=== PATIENT | male | born 1985 | race Caucasian/White ===

== ENCOUNTER → 2023-12-22 | Outpatient (CLI) | payer OTHER ==
[2023-12-22 10:19] VITALS: BP 155/109; PULSE 89; RESP 15; TEMP 98.6
--- NOTE | 2023-12-22 14:18 | P.PAINPG ---
Objective - Vital Signs Vital signs: Intake & Output 12/21/23 12/22/23 12/22/23 18:59 06:59 18:59 Weight 85.275 kg PQRS Measure Charge Sheet Comment: HISTORY OF PRESENT ILLNESS: A 38 yr old male as a referral from Dr Wen presents today w severe and chronic hand and feet pain for evaluation. Pt states pain level is provoked at 6 /10 in intensity, constant, generalized in the hands and feet, predominantly axial, achy in character without occasional shooting pain. Pain is provoked by lack of pain medications. Pain is alleviated by medications ([place] 10/325mg #90), repositioning and rest. PMH: OA, HTN, NIDDM II, RLS, COPD PSH: Denies SH: Hx of tobacco use, Occasional ETOH use, denies illicit drug use. Works in construction FH: DM All: See list Meds: See list REVIEW OF ORGAN SYSTEMS: CONSTITUTIONAL: No fevers or chills. No recent weight loss. NEUROLOGICAL: + numbness and tingling along the distal extremities. No seizure disorders or headaches. MUSCULOSKELETAL: + pain PSYCHIATRIC: Denies current depression or suicidal thoughts. Physical Examinations : Constitutional : Cooperative , not in acute distress . Neurologic : Cranial nerve II to XII intact. No focal neurological deficits. Psychiatric : alert & oriented x 3. Matching mood & appropriate affect. Judgment & insight intact. Musculoskeletal : Cervical Spine Motor strength in the deltoid and biceps: Normal right side. Normal Left side Motor strength biceps and the wrist extensors: Normal right side . Normal left side Motor strength in the triceps muscle: Normal right side. Normal left side Deep tendon reflexes: Normal at the biceps. Normal at Brachioradialis. Normal at triceps Vertebral body tenderness to deep palpation over Cervical facet loading test: positive bilaterally Spurling test: positive bilaterally Neck distraction test: positive bilaterally Kalli sign: positive bilaterally Lumbar spine Motor strength lower extremities ,thigh and legs 5/5 Right side , 5/5 Left side Deep tendon reflexes : Normal Knee Jerk. Normal Ankle Jerk Vertebral body tenderness over L4 Delacruz Test positive Lumbar facet Loading Test: positive Right / positive Left Range of motion of the lumbar spine Flexion 30 degrees, extension 10 degrees Straight Leg Raise test: Left/ Right positive at degree Kaylyn test: positive right / positive left. Severe tenderness over the Sacroiliac joint on the Right / Left sides Gaenslen test: positive bilaterally Seated flexion test: positive bilaterally. Sacral spine : Severe tenderness over the Sacroiliac joint: right side / left side Range of motion: Flexion of the lumbar spine <60 degrees Range of motion: Extension of the lumbar spine <20 degrees Gaenslen's Test positive Kaylyn test: positive right side / left side Thigh Thrust Test Sacral Thrust Test Imaging: None on file Assessment/ Plan : Lumbar DDD Recommendation of lumbar x ray M51.36 May need additional testing if indicated. All questions answered. I have spent greater than 30 minutes on patient care today. Dr Nunez was available by phone for the evaluation of this patient. The time was used to review the medical records including relevant urine studies and Prescription history (MAPs), review of the available imaging, evaluation and examination of the patient, coordination of care with the medical staff and if applicable referring physicians, as well as creation of the medical record Home Medications: Ambulatory Orders Gabapentin [Neurontin] 300 mg PO BID 30 Days #60 cap 12/22/23 HYDROcodone/APAP 10-325MG [Gen[place] 10-325] 1 tab PO Q4-6H 12/22/23 Controlled Substance Measures - Controlled Substance Measures Is patient prescribed a controlled substance at discharge?: Yes When asked, does pt state using other controlled substances?: Yes If prescribed controlled substance>3 days was MAPS reviewed?: Yes If Rx opioid, was Start Talking consent form obtained?: Yes Was information provided regarding opioid addiction?: Yes
== END | disposition home or self-care (01) ==
LOC: PNWHC3 09:37
PROVIDERS: ATTEND Specialist
DX: M51.36 Other intervertebral disc degeneration, lumbar region (principal); E10.43 Type 1 diabetes mellitus with diabetic autonomic (poly)neuropathy; G89.29 Other chronic pain; M54.40 Lumbago with sciatica, unspecified side
CPT/HCPCS: 99211